=== PATIENT | male | born 1990 | race African-American/Black ===

== ENCOUNTER 2017-01-02 17:04 | Emergency (ER) | payer SELFPAY | END 2017-01-02 20:07 | disposition left against medical advice (07) | LOC: ER 17:06 | DX: Z53.21 Procedure and treatment not carried out due to patient leaving prior to being seen by health care provider (principal) ==

== ENCOUNTER 2017-01-03 01:34 | Emergency (ER) | payer SELFPAY ==
[~2017-01-03] VITALS: Ht 188 cm; Wt 72.6 kg
[2017-01-03 01:52] VITALS: BP 145/90
== END 2017-01-03 01:59 | disposition left against medical advice (07) ==
LOC: ER 01:34
DX: Z53.21 Procedure and treatment not carried out due to patient leaving prior to being seen by health care provider (principal)
CPT/HCPCS: A4606; Z7610